=== PATIENT | male | born 1950 | race Caucasian/White ===

== ENCOUNTER 2016-12-28 05:38 | Outpatient (CLI) | payer MEDICARE ==
[~2016-12-28] VITALS: Ht 188 cm; Wt 98.4 kg
[~2016-12-28 05:38] MED LIST: LEVO750T24 PO
[2016-12-28] MEDS ORDERED: MULT-1061 PO (11:34)
== END 2016-12-28 11:42 ==
LOC: PREOP 05:38
PROVIDERS: ATTEND Surgery
DX: Z01.818 Encounter for other preprocedural examination (principal); L98.9 Disorder of the skin and subcutaneous tissue, unspecified

== ENCOUNTER 2016-12-29 07:20 | Day surgery (SDC) | payer MEDICARE ==
[~2016-12-29] VITALS: Ht 188 cm; Wt 98.4 kg
[~2016-12-29 07:20] MED LIST changes: +MULT-1061 PO
--- OUTSIDE RECORDS SUMMARY | 2016-12-29 07:23 | XMS REPORT | Continuity of Care Document ---
Author Author [facility] Organization [facility] Address Unknown Phone Unavailable Allergies Active Description Code Type Severity Reaction Onset Reported/Identified Relationship to Patient Clinical Status Yes No Known Drug Allergies [id number] Drug Allergy Unknown N/ A 12/28/2016 Medications Problems Procedures Results Encounters ACCT No. Visit Date/Time Discharge Status Pt. Type Provider Facility Loc./Unit Complaint [id number] 12/28/2016 05:38:00 2016 11:42:00 DIS Outpatient IVANIA GUTIERREZ DO [facility] PREOP LESION LEFT RESTORATIONISM [id number] 07/15/2012 04:05:00 2012 08:10:00 DIS Inpatient [id number] 12/29/2016 13:45:00 PEN Preadmit IVANIA GUTIERREZ DO [facility] SD LESION LEFT RESTORATIONISM
[2016-12-29 07:25] VITALS: BP 154/76
[2016-12-29] MEDS ORDERED: LACTATED RINGERS 1,000 ML IV PRN (07:45)
[2016-12-29] MEDS ORDERED: ceFAZolin 2 GM/NS 50 ML IV ONE (08:00)
[2016-12-29] MEDS ORDERED: proPOfol 200 MG/20 ML (DIPRIVAN) VIAL IV ONE (08:36)
[2016-12-29] MEDS ORDERED: KETAMINE HCL 100 MG/ML 5 ML VIAL ONE (08:37)
[2016-12-29] MEDS ORDERED: LIDOCAINE/EPI 1%-1:200,000 (XYLOCAINE) 10 ML VIAL ONE (09:19)
--- NOTE | 2016-12-29 09:37 | Progress Note-Pre Operative ---
Pre-Operative Progress Note H&P Reviewed The H&P was reviewed, patient examined and no changes noted. Date Seen by Provider: Dec 29, 2016 Time Seen by Provider: 09:20 Date H&P Reviewed: Dec 29, 2016 Time H&P Reviewed: 09:20 Pre-Operative Diagnosis: CYST LEFT FACE IVANIA GUTIERREZ DO Dec 29, 2016 09:37
[2016-12-29 10:35] VITALS: BP 129/88
[2016-12-29 11:05] VITALS: BP 139/92
--- NOTE | 2016-12-29 19:31 | OPERATIVE REPORT ---
DATE OF SERVICE: 12/29/2016 PREOPERATIVE DIAGNOSIS: Cyst, left face. POSTOPERATIVE DIAGNOSIS: Cyst, left face. PROCEDURE: Excision of cyst 2.2 x 1 cm in the skin and subcutaneous layer. SURGEON: Ivania Ro Do ANESTHESIA: MAC with local. ESTIMATED BLOOD LOSS: Minimal. COMPLICATIONS: None. INDICATIONS: The patient is a 66-year-old male with a cyst on the left face, which had increased in size. The patient had it previously drained and it had gone down in size and was ____ causing the significant pain that he was having before. The patient wished to have this removed. He understands risks and benefits and wished to proceed with procedure. Consent was signed in the chart. PROCEDURE: The patient was taken to the operating suite and was prepped and draped in a sterile fashion. Timeout was performed. Local anesthetic was infiltrated around the cyst. An elliptical incision measuring 2.2 x 1 cm was made around the cyst. Cautery was used to dissect the skin and subcutaneous tissues around the cyst. Specimen was removed. The wound was irrigated and skin was closed using 5-0 Prolene. The patient then had the area washed and dried and sterile bandage applied. The patient tolerated the procedure well without any complications and was taken to the recovery room in stable condition. Job ID: [id number] DocumentID: [id number] Dictated Date: 12/29/2016 15:23:19 Casing Soaker Date: 12/29/2016 19:30:28 Dictated By: IVANIA RO DO
== END 2016-12-29 11:10 | disposition home or self-care (01) ==
LOC: SDC 07:20
PROVIDERS: ATTEND Surgery
DX: L72.0 Epidermal cyst (principal)
CPT/HCPCS: 87081

== ENCOUNTER 2019-11-07 05:41 | Outpatient (CLI) | payer MEDICARE ==
[~2019-11-07] VITALS: Ht 188 cm; Wt 92.7 kg
== END 2019-11-07 14:07 ==
LOC: PREOP 05:41
PROVIDERS: ATTEND Internal Medicine
DX: Z01.818 Encounter for other preprocedural examination (principal)

== ENCOUNTER 2019-11-15 07:05 | Day surgery (SDC) | payer MEDICARE ==
--- NOTE | 2019-11-14 23:57 | HISTORY AND PHYSICAL ---
DATE OF SERVICE: COLONOSCOPY HISTORY AND PHYSICAL HISTORY OF PRESENT ILLNESS: The patient is a 69-year-old white male seen on for initial patient evaluation. He reports that he is feeling well. He had recently moved and did come in with reports of a positive fecal immunohistochemical test for blood dated 08/28/2018. He has noted no bright red blood per rectum or melena. Denied any GI type symptomatology and reports no past history of colonoscopy. For this reason, he is being set up for his first screening colonoscopy. PAST MEDICAL HISTORY: Quite unremarkable. He has a history of mild prostatism. He had tried tamsulosin, but had a lot of nasal congestion, just gets up once at night and does not really want to consider any other medication. He takes no medication prescription over the counter. PAST SURGICAL HISTORY: He reports no past no past surgical history and no past hospitalizations. FAMILY HISTORY: Father of a heart attack at the age of 77. Mother of complications of a pulmonary embolism in her early 60s. He has two brothers in their 60s with no health problems. PHYSICAL EXAMINATION: GENERAL: Reveals a white male, who appeared to be in no acute distress. Weight is 204. VITAL SIGNS: Blood pressure 150/80. HEENT: Unremarkable. Ear canals clear with normal TMs. CHEST: Clear to auscultation. CARDIOVASCULAR: Reveals regular rate and rhythm without murmur, S3 or S4. ABDOMEN: Soft, supple without mass, organomegaly or tenderness. EXTREMITIES: Reveal no cyanosis, clubbing or edema. SKIN: Evaluation revealed no suspicious nevi. ASSESSMENT AND PLAN: 1. The patient is set up for screening colonoscopy. Prep instructions with Suprep kit were given and questions were answered. 2. Blood pressure elevation. We will see where his blood pressure is running at the time of the colonoscopy. Check home blood pressures. Follow up in six months. Continue regular exercise and lower salt diet. Obtain the remainder of his office records likely chemistry and lipid panel with a PSA, on return. Job ID: [id number] DocumentID: [id number] Dictated Date: 11/14/2019 11:51:24 Farm Management Teacher Date: 11/14/2019 12:09:05 Dictated By: CARRIE VALLEJO MD
[2019-11-15] VITALS (15 sets, daily range): BP systolic 93–171; BP diastolic 61–101
[~2019-11-15] VITALS: Ht 188 cm; Wt 92.7 kg
[2019-11-15] MEDS ORDERED: D5 LR IV SOLUTION 1,000 ML IV ONE (07:18)
[2019-11-15] MEDS ORDERED: D5 LR IV SOLUTION 1,000 ML IV STA (07:19)
[2019-11-15] MEDS ORDERED: LIDOCAINE JELLY 2% 6 ML SYRINGE MM PRN (07:30)
[2019-11-15] MEDS ORDERED: MIDAZOLAM 5 MG/5 ML (VERSED) VIAL IV ONE (07:30)
[2019-11-15] MEDS ORDERED: fentaNYL INJECTION 100 MCG/2 ML AMP IVP ONE (07:30)
[2019-11-15] MEDS ORDERED: LIDOCAINE JELLY 2% 6 ML SYRINGE ONE (07:36)
[2019-11-15] MEDS ORDERED: fentaNYL INJECTION 100 MCG/2 ML AMP ONE (07:36)
[2019-11-15] MEDS ORDERED: MIDAZOLAM 5 MG/5 ML (VERSED) VIAL ONE (07:37)
--- NOTE | 2019-11-15 08:53 | Pre-Op Note & Conscious Sedat ---
Pre-Operative Progress Note H&P Reviewed The H&P was reviewed, patient examined and no changes noted. Date H&P Reviewed: Nov 15, 2019 Time H&P Reviewed: 07:40 Conscious Sedation Pre-Proced ASA Score 2 For ASA 3 and 4: Consider anesthesia and medical clearance. Also, for patients with a history of failed moderate sedation consider anesthesia. Airway Lungs Heart ASA score ASA 1: a normal healthy patient ASA 2: a patient with a mild systemic disease (mid diabetes, controlled hypertension, obesity ASA 3: a patient with a severe systemic disease that limits activity (angina, COPD, prior Myocardial infarction) ASA 4: a patient with an incapacitating disease that is a constant threat to life (CHF, renal failure) ASA 5: a moribund patient not expected to survive 24 hrs. (ruptured aneurysm) ASA 6: a declared brain- patient whose organs are being harvested. For emergent operations, add the letter E after the classification Mallampati Classification Grade 2 Sedation Plan Analgesia, Amnesia, Plan communicated to team members, Discussed options with patient/fam, Discussed risks with patient/fam The patient is an appropriate candidate to undergo the planned procedure, sedation, and anesthesia. The patient immediately re-assessed prior to indication. CARRIE VALLEJO MD Nov 15, 2019 08:53
--- NOTE | 2019-11-15 17:57 | OPERATIVE REPORT ---
DATE OF SERVICE: 11/15/2019 COLONOSCOPY SUMMARY PRIMARY CARE PROVIDER: Carrie Vallejo MD. INDICATION FOR PROCEDURE: Screening colonoscopy. DESCRIPTION OF PROCEDURE: The patient was placed in the left lateral decubitus position. Prior to undergoing colonoscopy, a digital rectal evaluation was performed. Anal sphincter tone was normal and the perianal reflex was intact. Prostate is mild to moderately enlarged, anodular and nontender to digital inspection. No other abnormalities were noted on digital inspection of the anal canal or distal rectal vault. The colonoscope was then inserted into the rectum and under direct visualization advanced to the cecum. The quality of the prep was good. The patient tolerated the procedure well. FINDINGS: There was no evidence for internal or external hemorrhoids and the rectum was unremarkable. One diminutive distal sigmoid hyperplastic appearing polyp was noted. It was left. See below. There was severe diverticular disease throughout the sigmoid colon and distal descending colon. Present at 40 cm from the anal verge in the proximal sigmoid colon was a pedunculated polyp measuring about 8 mm in size. It was not in the location due to severe diverticular disease to land itself for snare removal, so it was biopsied and cauterized with minimal blood loss. There was no evidence for diverticular disease. Other than diverticular disease, the descending colon was unremarkable. The splenic flexure, transverse colon, hepatic flexure and proximal and mid ascending colon were unremarkable. Present in the proximal ascending colon was a diminutive 4 mm sessile adenomatous-appearing polyp. It was biopsied and ablated with no blood loss. The cecum of the colon was unremarkable. ASSESSMENT: Two polyps were removed today. The larger one being an 8 mm pedunculated polyp that was cauterized in the proximal sigmoid colon, 40 cm from the anal verge, not amenable to snaring due to severe diverticular disease. As long as there are no surprises on histopathology, we will be abdicating repeat surveillance colonoscopy in one year. Digital rectal evaluation was compatible with mild to moderate BPH. There was no evidence for diverticulitis at the time of the procedure. Unrelated to colonoscopy, I had received laboratory records from last October from the patient's previous provider. I did not have any other records available, but his blood sugar was a little over 300 at that time and his hemoglobin was a little over 11 qualifying for uncontrolled diabetes. This was discussed with the patient. We will need to have him return to our office for repeat laboratory testing. Dietary issues in regard to type 2 diabetes were discussed with the patient with the likely need for medication. We will perform an office evaluation for diabetic neuropathy and it was advised the patient get in to see his junk dealer initially for diabetic eye evaluation. An extra 15 plus minutes were spent in regard to discussion of diabetes, diet and importance of followup. I had made multiple attempts and left a voicemail message for the patient, but he had not returned my calls. Job ID: [id number] DocumentID: [id number] Dictated Date: 11/15/2019 09:05:21 Service Counter Cashier Date: 11/15/2019 16:19:42 Dictated By: CARRIE VALLEJO MD MTDD
== END 2019-11-15 09:25 | disposition home or self-care (01) ==
LOC: ENDO 07:05
PROVIDERS: ATTEND Internal Medicine
DX: Z12.11 Encounter for screening for malignant neoplasm of colon (principal); D12.2 Benign neoplasm of ascending colon; D12.5 Benign neoplasm of sigmoid colon; K57.30 Diverticulosis of large intestine without perforation or abscess without bleeding; N40.0 Benign prostatic hyperplasia without lower urinary tract symptoms; E11.65 Type 2 diabetes mellitus with hyperglycemia
CPT/HCPCS: 88305

== ENCOUNTER 2020-05-21 12:03 | Outpatient (CLI) | payer MEDICARE ==
[~2020-05-21] VITALS: Ht 188 cm; Wt 81.6 kg
== END 2020-05-26 14:20 | disposition home or self-care (01) ==
LOC: PREOP 12:03
PROVIDERS: ATTEND Internal Medicine
DX: Z01.812 Encounter for preprocedural laboratory examination (principal); K63.5 Polyp of colon; Z01.818 Encounter for other preprocedural examination

== ENCOUNTER 2020-05-29 07:26 | Day surgery (SDC) | payer MEDICARE ==
--- NOTE | 2020-05-17 09:58 | HISTORY AND PHYSICAL ---
DATE OF SERVICE: COLONOSCOPY HISTORY AND PHYSICAL HISTORY OF PRESENT ILLNESS: The patient is a 70-year-old white male who underwent colonoscopy, essentially six months ago beginning of November. At that time, he had tubular adenomas removed from the proximal ascending colon and proximal sigmoid colon, both of which revealed high-grade dysplasia. He is returning for surveillance colonoscopy. He is also here for followup of diet-controlled type 2 diabetes. He reports that he has received COVID vaccination and that he has been feeling well. He has noted no bright red blood per rectum and denies melena, bowel habit change or abdominal pain. He is continuing to follow lower glycemic diet and had lost another 1.6 pounds and is now down over 60 pounds from his high weight. His stated goal is to avoid medication. At one point, in November, A1c was 7.1. We repeated his A1c level on 05/04/2020, essentially stable at 7.2%. He denies any numbness in his feet. Eye examination has been unremarkable without evidence for retinopathy. PHYSICAL EXAMINATION: GENERAL: Revealed a white male, appeared to be in no acute distress. VITAL SIGNS: Weight 188.6 pounds, BMI 26, blood pressure 108/70. HEENT: Unremarkable. Sclerae nonicteric. CHEST: Clear. CARDIOVASCULAR: Regular rate and rhythm without murmur, S3 or S4. ABDOMEN: Soft, supple without mass, organomegaly or tenderness. EXTREMITIES: Reveal no cyanosis, clubbing or edema. ASSESSMENT AND PLAN: 1. The patient is set up for surveillance colonoscopy due to two adenomatous polyps with high-grade dysplasia removed as per above six months ago. Prep instructions were given and questions were answered. 2. Type 2 diabetes mellitus, controlled and improving. Discussed the importance of continued diet and exercise. We will see him back in 6 months with a BMP, lipid panel and A1c. Job ID: [id number] DocumentID: [id number] Dictated Date: 05/05/2020 11:54:33 Cheese Packer Date: 05/05/2020 12:06:31 Dictated By: CARRIE VALLEJO MD
[~2020-05-29] VITALS: Ht 188 cm; Wt 81.6 kg
[~2020-05-29 07:26] MED LIST changes: +LACTATED RINGERS 1,000 ML IV ONE; +MIDAZOLAM 2 MG/2 ML (VERSED) VIAL ONE; +PROPOFOL INJECTION 50 ML IV ONE
[2020-05-29] MEDS ORDERED: LACTATED RINGERS 1,000 ML IV STA (07:28)
[2020-05-29] MEDS ORDERED: LIDOCAINE JELLY 2% 6 ML SYRINGE MM PRN (07:30)
[2020-05-29 07:42] VITALS: BP 117/97
[2020-05-29] MEDS ORDERED: LIDOCAINE JELLY 2% 6 ML SYRINGE ONE (07:51)
--- NOTE | 2020-05-29 07:55 | Pre-Op Note & Conscious Sedat ---
Pre-Operative Progress Note H&P Reviewed The H&P was reviewed, patient examined and no changes noted. Date H&P Reviewed: May 29, 2020 Time H&P Reviewed: 07:45 Conscious Sedation Pre-Proced ASA Score 2 For ASA 3 and 4: Consider anesthesia and medical clearance. Also, for patients with a history of failed moderate sedation consider anesthesia. Airway Lungs Heart ASA score ASA 1: a normal healthy patient ASA 2: a patient with a mild systemic disease (mid diabetes, controlled hypertension, obesity ASA 3: a patient with a severe systemic disease that limits activity (angina, COPD, prior Myocardial infarction) ASA 4: a patient with an incapacitating disease that is a constant threat to life (CHF, renal failure) ASA 5: a moribund patient not expected to survive 24 hrs. (ruptured aneurysm) ASA 6: a declared brain- patient whose organs are being harvested. For emergent operations, add the letter E after the classification Mallampati Classification Grade 2 Sedation Plan Analgesia, Amnesia, Plan communicated to team members, Discussed options with patient/fam, Discussed risks with patient/fam The patient is an appropriate candidate to undergo the planned procedure, sedation, and anesthesia. The patient immediately re-assessed prior to indication. CARRIE VALLEJO MD May 29, 2020 07:55
[2020-05-29 08:30] VITALS: BP 84/50
[2020-05-29 09:00] VITALS: BP 102/52
[2020-05-29 09:22] VITALS: BP 102/52
--- NOTE | 2020-05-29 10:50 | Anesthesia-General Post-Op ---
MAC Patient Condition Mental Status/LOC: Same as Preop Cardiovascular: Satisfactory Nausea/Vomiting: Absent Respiratory: Satisfactory Pain: Controlled Complications: Absent Post Op Complications Complications None Follow Up Care/Instructions Patient Instructions None needed. Anesthesiology Discharge Order Discharge Order Patient is doing well, no complaints, stable vital signs, no apparent adverse anesthesia problems. No complications reported per nursing. KIRILL HOANG CRNA May 29, 2020 10:50
--- NOTE | 2020-05-29 17:21 | OPERATIVE REPORT ---
DATE OF SERVICE: COLONOSCOPY SUMMARY INDICATION FOR THE PROCEDURE: Surveillance, past history of dysplastic adenomas. DESCRIPTION OF PROCEDURE: The patient was placed in the left lateral decubitus position. Prior to undergoing colonoscopy, digital rectal evaluation was performed. Anal sphincter tone was normal and the perianal reflexes intact. Prostate is mildly enlarged, anodular and nontender to digital inspection. No other abnormalities were noted on digital inspection of anal canal or distal rectal vault. The colonoscope was then inserted into the rectum and under direct visualization advanced to cecum. The cecum was identified by identification of ileocecal valve and cecal strap. Photographic documentation was obtained. Quality of prep was good. The patient tolerated the procedure well. FINDINGS: There was no evidence for internal or external hemorrhoids and the rectum was unremarkable. Diverticulum confined to the sigmoid colon were again noted without evidence for diverticulitis. No other sigmoid colonic abnormalities were appreciated. No evidence for previous removed polyp was noted. The descending colon and transverse colon were unremarkable. Present in the proximal ascending colon, likely at the site of the other dysplastic polyp removed was a small nubbin of tissue. I suspect more likely a scar in etiology, although the area was biopsied and ablated and submitted for histopathology. The remainder of the ascending colon and cecum were unremarkable. ASSESSMENT: Questionable residual of a previously cauterized ascending colonic polyp although I favor scar tissue. It was biopsied and ablated and submitted for histopathology. If there is no evidence for adenomatous or dysplastic tissue, we will advocate repeat surveillance colonoscopy in three years. Mild to moderate diverticular disease was again noted in the sigmoid colon and there is evidence for mild BPH on digital rectal evaluation as noted above. Job ID: [id number] DocumentID: [id number] Dictated Date: 05/29/2020 11:18:05 Global Engineering Manager Date: 05/29/2020 17:21:37 Dictated By: CARRIE VALLEJO MD [facility]
== END 2020-05-29 09:22 | disposition home or self-care (01) ==
LOC: ENDO 07:26
PROVIDERS: ATTEND Internal Medicine
DX: Z12.11 Encounter for screening for malignant neoplasm of colon (principal); K63.89 Other specified diseases of intestine; K57.30 Diverticulosis of large intestine without perforation or abscess without bleeding; E11.9 Type 2 diabetes mellitus without complications; Z87.2 Personal history of diseases of the skin and subcutaneous tissue; Z88.8 Allergy status to other drugs, medicaments and biological substances; Z86.010 Personal history of colon polyps
CPT/HCPCS: 88305; G0105

== ENCOUNTER → 2021-05-11 | Outpatient (CLI) | payer MEDICARE ==
[~2021-05-11] MED LIST changes: -LACTATED RINGERS 1,000 ML IV ONE; -MIDAZOLAM 2 MG/2 ML (VERSED) VIAL ONE; -PROPOFOL INJECTION 50 ML IV ONE
--- NOTE | 2021-05-11 08:35 | Diagnostic Imaging Report ---
INDICATION: Elevated liver enzymes. Abdominal sonography performed in routine fashion. There is no prior study for comparison. The liver shows normal echogenicity without focal lesion. There are few small gallstones in the gallbladder but no significant gallbladder wall thickening. Common duct measured 3 mm. Portal vein is patent with hepatopetal flow. Pancreas is not well seen due to overlying gas. Spleen was unremarkable. The aorta was not well seen due to overlying gas. IVC appeared unremarkable. The right kidney was normal at 9.8 x 6.5 x 6.1 cm, left kidney was normal at 10.3 x 6.5 x 6.3 cm. There was no ascites. IMPRESSION: There are a few small gallstones in the gallbladder, without gallbladder wall thickening or biliary dilatation. There is no focal liver lesion. Dictated by: Dictated on workstation # [id number]
== END ==
LOC: RAD 07:15
PROVIDERS: ATTEND Internal Medicine
DX: R94.5 Abnormal results of liver function studies (principal); K80.80 Other cholelithiasis without obstruction
CPT/HCPCS: 76700

== ENCOUNTER 2021-09-07 09:47 | Emergency (ER) | payer MEDICARE ==
[~2021-09-07] VITALS: Ht 187.9 cm; Wt 87.9 kg
--- NOTE | 2021-09-07 10:49 | ED General ---
General Chief Complaint: Foreign Body Stated Complaint: SWALLOWED PILL WRONG Nursing Triage Note: PT AMB TO FT 1 WITH C/O SWALLOWING PILL WRONG THIS AM. PT STATES HAS CAUSED HIM TO COUGH. Source of Information: Patient Exam Limitations: No Limitations History of Present Illness Date Seen by Provider: Sep 07, 2021 Time Seen by Provider: 10:25 Initial Comments Here with report of getting a vitamin pill stuck in his throat for a little whi le. He thinks it is dissolved and gone down but he is not sure if he breathed any and he was a little concerned. States he felt like he had a little chest congestion but is not having any breathing problems currently. He does have taste of the findings and now. He has not been able to drink and eat okay. Timing/Duration: 1 Hour Severity: Mild Modifying Factors: improves with Rest Associated Systoms: No Chest Pain, No Cough; Shortness of Air (Resolved) Allergies and Home Medications Allergies Coded Allergies: tamsulosin (Verified Adverse Reaction, Unknown, made allergies worse, 11/07/19) Patient Home Medication List Home Medication List Reviewed: Yes No Active Prescriptions or Reported Meds Review of Systems Review of Systems Constitutional: see HPI; No chills, No fever Respiratory: short of breath; No wheezing Cardiovascular: No chest pain, No palpitations Gastrointestinal: No abdominal pain, No vomiting Psychiatric/Neurological: No Symptoms Reported Past Ztpbpra-Dcnhxw-Kymuae Hx Patient Social History Tobacco Use?: No Substance use?: No Alcohol Use?: No Pt feels they are or have been: No Immunizations Up To Date Tetanus Booster (TDap): Unknown PED Vaccines UTD: No First/Initial COVID19 Vaccinat: 04/13/2020 Second COVID19 Vaccination Jose Manuel: 05/14/2020 Third COVID19 Vaccination Date: 04/13/2020 Seasonal Allergies Seasonal Allergies: Yes Past Medical History Surgery/Hospitalization HX: UMBILICUS SURGERY PMH; CLEFT PALATE Surgeries: Yes (CLEFT PALATE CHILD, UMBILICAL INJURY REPAIR) Respiratory: No Cardiac: No Neurological: No Reproductive Disorders: No Sexually Transmitted Disease: No HIV/AIDS: No Genitourinary: No Gastrointestinal: No Musculoskeletal: Yes Fractures Endocrine: No HEENT: No Loss of Vision: Denies Hearing Impairment: Denies Cancer: No Psychosocial: No Integumentary: No Blood Disorders: No Adverse Reaction/Blood Tranf: No Family Medical History Reviewed Nursing Family Hx No Pertinent Family Hx Physical Exam Vital Signs Vital Signs - First Documented 09/07/21 09:54 Temp 36.5 Pulse 94 Resp 15 B/P (MAP) 152/86 (108) Pulse Ox 98 Capillary Refill : Less Than 3 Seconds Height, Weight, BMI Height: 6'2.00" Weight: 217lbs. 0.0oz. 98.638340qm; 24.00 BMI Method:Stated General Appearance: No Apparent Distress, WD/WN Respiratory: Lungs Clear, Normal Breath Sounds Cardiovascular: Regular Rate, Rhythm, No Murmur Neurologic/Psychiatric: Alert, Oriented x3 Progress/Results/Core Measures Suspected Sepsis SIRS Temperature: Pulse: 94 Respiratory Rate: 15 Blood Pressure 152 /86 Mean: 108 Results/Orders My Orders Orders - VARUN SHEEHAN MD Chest Pa/Lat (2 View) (09/07/21 10:30) Vital Signs/I&O 09/07/21 09:54 Temp 36.5 Pulse 94 Resp 15 B/P (MAP) 152/86 (108) Pulse Ox 98 Capillary Refill : Less Than 3 Seconds Blood Pressure Mean: 108 Progress Note : Progress Note Seen and evaluated. Two-view chest x-ray ordered. Monitor patient. Chest x- ray negative. Discharged home with return precautions. Patient verbalized understanding instructions and agreement with plan. Diagnostic Imaging Diagonstic Imaging: Xray Plain Films/CT/US/NM/MRI: chest Comments [facility], [place] NAME: JOVANNA DAVIDSON [facility] REC#: [id number] PT STATUS: REG ER : 1950 PHYSICIAN: VARUN SHEEHAN MD ADMIT DATE: 09/07/21/ER Draft Date of Exam:09/07/21 CHEST PA/LAT (2 VIEW) INDICATION: Possible pill impaction. TECHNIQUE: PA and lateral views of the chest are obtained. COMPARISON: There is no previous study for comparison. FINDINGS: Heart size and pulmonary vascularity are within normal limits. There is no pneumothorax or consolidation. Probable small calcified granulomas are present in the upper lobe of the right lung. There is no consolidation, pneumothorax or pleural fluid. No radiopaque foreign object is seen. IMPRESSION: No acute abnormality is detected. Dictated on workstation # [id number] Dict: 09/07/21 1051 Trans: 09/07/21 1057 [id number] Interpreted by: SUE WARE MD Electronically signed by: Departure Impression Primary Impression: Foreign body in esophagus Qualified Codes: T18.108A - Unspecified foreign body in esophagus causing other injury, initial encounter Disposition: HOME, SELF-CARE Condition: Improved Departure-Patient Inst. Referrals: CARRIE VALLEJO MD (PCP/Family) Primary Care Physician Patient Instructions: Swallowed Objects, Adult (DC) Add. Discharge Instructions: All discharge instructions reviewed with patient and/or family. Voiced underst anding. Continue fluids as tolerated. Eat as tolerated. Continue home medications as previously prescribed. Return for worse pain, fever, vomiting, weakness, breathing problems or other concerns as needed. Scripts No Active Prescriptions or Reported Meds VARUN SHEEHAN MD Sep 07, 2021 10:49
--- NOTE | 2021-09-07 10:58 | Diagnostic Imaging Report ---
INDICATION: Possible pill impaction. TECHNIQUE: PA and lateral views of the chest are obtained. COMPARISON: There is no previous study for comparison. FINDINGS: Heart size and pulmonary vascularity are within normal limits. There is no pneumothorax or consolidation. Probable small calcified granulomas are present in the upper lobe of the right lung. There is no consolidation, pneumothorax or pleural fluid. No radiopaque foreign object is seen. IMPRESSION: No acute abnormality is detected. Dictated by: Dictated on workstation # [id number]
[2021-09-07 11:15] VITALS: BP 152/86
== END 2021-09-07 11:15 | disposition home or self-care (01) ==
LOC: EDUNIT# 09:47 → ER 09:49
DX: T18.108A Unspecified foreign body in esophagus causing other injury, initial encounter (principal)
CPT/HCPCS: 71046

== ENCOUNTER 2022-07-05 08:35 | Emergency (ER) | payer MEDICARE, OTHER ==
[~2022-07-05] VITALS: Ht 188 cm; Wt 90.0 kg
--- NOTE | 2022-07-05 08:47 | ED General ---
General Chief Complaint: Abdominal/GI Problems Stated Complaint: LT SIDE PAIN Source of Information: Patient Exam Limitations: No Limitations History of Present Illness Date Seen by Provider: July 05, 2022 Time Seen by Provider: 08:38 Initial Comments 72-year-old male presents to the emergency department today for left chest wall pain. It is just lateral to his nipple on the left anterior ribs. He states on Monday he was putting off using his daughter's car and leaning against the seat for significant amount of time. It started hurting so he switched to the floor board. He got better that evening but then started hurting again the next day. No fevers chills cough. His pain is worse with deep inspiration. He has no lower rib tenderness or abdominal tenderness. No changes in his bowels or bladder. He wants to make sure he did not break a rib. All other systems reviewed and negative except documented per HPI. Voice recognition software was used to help create this chart Allergies and Home Medications Allergies Coded Allergies: tamsulosin (Verified Adverse Reaction, Unknown, made allergies worse, 11/07/19) Patient Home Medication List Home Medication List Reviewed: Yes No Active Prescriptions or Reported Meds Review of Systems Review of Systems Constitutional: see HPI Past Lcvevkj-Fjfoiu-Armufa Hx Patient Social History Tobacco Use?: No Use of E-Cig and/or Vaping dev: No Substance use?: No Alcohol Use?: No Immunizations Up To Date Tetanus Booster (TDap): Unknown PED Vaccines UTD: No First/Initial COVID19 Vaccinat: 04/13/2020 Second COVID19 Vaccination Jose Manuel: 05/14/2020 Third COVID19 Vaccination Date: 04/13/2020 Seasonal Allergies Seasonal Allergies: Yes Past Medical History Surgery/Hospitalization HX: UMBILICUS SURGERY PMH; CLEFT PALATE Surgeries: Yes (CLEFT PALATE CHILD, UMBILICAL INJURY REPAIR) Respiratory: No Cardiac: No Neurological: No Reproductive Disorders: No Sexually Transmitted Disease: No HIV/AIDS: No Genitourinary: No Gastrointestinal: No Musculoskeletal: Yes Fractures Endocrine: No HEENT: No Loss of Vision: Denies Hearing Impairment: Denies Cancer: No Psychosocial: No Integumentary: No Blood Disorders: No Adverse Reaction/Blood Tranf: No Family Medical History No Pertinent Family Hx Physical Exam Vital Signs Vital Signs - First Documented 07/05/22 08:41 Temp 35.8 Pulse 81 Resp 20 B/P (MAP) 152/87 (108) Pulse Ox 97 O2 Delivery Room Air Capillary Refill : Height, Weight, BMI Height: 6'2.00" Weight: 217lbs. 0.0oz. [id number]; 24.00 BMI Method:Stated General Appearance: No Apparent Distress, WD/WN HEENT: Normal ENT Inspection, Pharynx Normal Respiratory: Lungs Clear, Normal Breath Sounds, No Accessory Muscle Use, No Respiratory Distress, Other (Tenderness palpation left anterior lateral chest wall at the level of the nipple. No crepitus or pain. Equal breath sounds bilaterally.) Cardiovascular: Regular Rate, Rhythm, No Murmur, Normal Peripheral Pulses Gastrointestinal: Normal Bowel Sounds, No Organomegaly, Non Tender, Soft Progress/Results/Core Measures Suspected Sepsis SIRS Temperature: Pulse: Respiratory Rate: Blood Pressure / Mean: Results/Orders My Orders Orders - MURRAY SANTANA DO Chest Pa/Lat (2 View) (07/05/22 08:44) Vital Signs/I&O 07/05/22 07/05/22 08:41 09:05 Temp 35.8 35.8 Pulse 81 81 Resp 20 20 B/P (MAP) 152/87 (108) 152/87 Pulse Ox 97 97 O2 Delivery Room Air Room Air Capillary Refill : Departure Communication (Admissions) Patient is hemodynamically stable. Independently reviewed the x-rays show no acute bony, cardiopulmonary abnormalities. His vital signs are normal. He has clear chest wall pain on exam with a clear mechanism of injury. Discharged in stable condition with supportive care. Impression Primary Impression: Left-sided chest wall pain Disposition: 01 HOME, SELF-CARE Condition: Stable Departure-Patient Inst. Referrals: CARRIE VALLEJO MD (PCP/Family) Primary Care Physician Add. Discharge Instructions: You are seen in the emergency department today for pain in your left chest. As discussed I think you have bruised the ribs in the area. There is no evidence for broken ribs. There is no collapsed lung. Use ibuprofen and Tylenol as needed for pain. Return to the emergency department for any severe concerns. All discharge instructions reviewed with patient and/or family. Voiced understanding. Scripts No Active Prescriptions or Reported Meds MURRAY SANTANA DO July 05, 2022 08:47
--- NOTE | 2022-07-05 09:04 | Diagnostic Imaging Report ---
INDICATION: Left-sided rib pain, difficulty breathing. PA and lateral chest obtained at 09:05 a.m. compared to 09/07/2021 FINDINGS: Heart is normal in size. Aorta is tortuous. There is no focal infiltrate or pneumothorax or pleural fluid. There is a small nodular density in the right upper lobe. This is either low more prominent or better visualized than on 09/07/2021. IMPRESSION: No acute infiltrate or pneumothorax or pleural fluid. Right upper lobe nodular density is slightly better visualized and more prominent than the previous study, consider short-term follow-up chest x-ray or chest CT for further evaluation. Dictated by: Dictated on workstation # [id number]
[2022-07-05 09:05] VITALS: BP 152/87
== END 2022-07-05 09:05 | disposition home or self-care (01) ==
LOC: EDUNIT# 08:35 → ER 08:36
DX: R07.89 Other chest pain (principal)
CPT/HCPCS: 71046